=== PATIENT | female | born 1975 | race Hispanic/Latino ===

== ENCOUNTER 2021-08-21 13:27 | Emergency (ER) | payer OTHER ==
[~2021-08-21] VITALS: Ht 162.6 cm; Wt 90.7 kg
[2021-08-21 13:40] VITALS: BP 148/74
[2021-08-21] MEDS ORDERED: IBUPROFEN 600 MG TABLET PO ONE (14:00)
[2021-08-21] MEDS ORDERED: IBUP-2070 PO (14:02)
[2021-08-21] MEDS ORDERED: ACET-2079 PO (14:02)
== END 2021-08-21 14:24 | disposition home or self-care (01) ==
LOC: EDH 13:27
DX: S82.445A Nondisplaced spiral fracture of shaft of left fibula, initial encounter for closed fracture (principal); Z79.1 Long term (current) use of non-steroidal anti-inflammatories (NSAID); X58.XXXA Exposure to other specified factors, initial encounter; Y93.89 Activity, other specified; Y92.89 Other specified places as the place of occurrence of the external cause; Y99.8 Other external cause status
CPT/HCPCS: 73610; 73630